=== PATIENT | male | born 1985 | race Caucasian/White ===

== ENCOUNTER 2017-07-28 03:19 | Emergency (ER) | payer OTHER ==
[2017-07-28 03:24] VITALS: BP 148/78
--- NOTE | 2017-07-28 03:47 | ER Document Report ---
ED Skin Rash/Insect Bite/Abscs - General Chief Complaint: Abscess Stated Complaint: PAIN ABOVE KNEE LEFT LEG Time Seen by Provider: 07/28/17 03:44 Notes: The patient is a 32-year-old male who presents with a redness and swelling above his left knee. He said that he hit it against a hard object 2 days ago. Since then he has noticed worsening swelling and redness of his left leg. He denies numbness, tingling, difficulty bending his knee, fevers or any other rashes. TRAVEL OUTSIDE OF THE [place] IN LAST 30 DAYS: No - Related Data Allergies/Adverse Reactions: No Known Allergies Allergy (Verified 07/28/17 03:42) Past Medical History - General Information source: Patient - Social History Smoking Status: Current Every Day Smoker Family History: Reviewed & Not Pertinent Patient has suicidal ideation: No Patient has homicidal ideation: No Renal/ Medical History: Denies: Hx Peritoneal Dialysis Review of Systems - Review of Systems Notes: REVIEW OF SYSTEMS: CONSTITUTIONAL: -fevers, -chills EENT: -eye pain, -difficulty swallowing, -nasal congestion CARDIOVASCULAR:-chest pain, -syncope. RESPIRATORY: -cough, -SOB GASTROINTESTINAL: -abdominal pain, - nausea, -vomiting, -diarrhea GENITOURINARY: -dysuria, -hematuria MUSCULOSKELETAL: -back pain, -neck pain SKIN: +left leg redness HEMATOLOGIC: -easy bruising or bleeding. LYMPHATIC: -swollen, enlarged glands. NEUROLOGICAL: -altered mental status or loss of consciousness, -headache, - neurologic symptoms PSYCHIATRIC: -anxiety, -depression. ALL OTHER SYSTEMS REVIEWED AND NEGATIVE. Physical Exam - Vital signs Vitals: Temp Pulse Resp BP Pulse Ox 97.8 F 42 L 18 148/78 H 98 07/28/17 03:23 07/28/17 03:23 07/28/17 03:23 07/28/17 03:23 07/28/17 03:23 - Notes Notes: PHYSICAL EXAMINATION: GENERAL: Well-appearing, well-nourished and in no acute distress. HEAD: Atraumatic, normocephalic. EYES: Pupils equal round and reactive to light, extraocular movements intact, sclera anicteric, conjunctiva are normal. ENT: nares patent, oropharynx clear without exudates. Moist mucous membranes. NECK: Normal range of motion, supple without lymphadenopathy LUNGS: Breath sounds clear to auscultation bilaterally and equal. No wheezes rales or rhonchi. HEART: Bradycardia (normal for him) ABDOMEN: Soft, nontender, normoactive bowel sounds. No guarding, no rebound. No masses appreciated. EXTREMITIES: Normal range of motion, no pitting or edema. No cyanosis. NEUROLOGICAL: Cranial nerves grossly intact. Normal speech, normal gait. Normal sensory and motor exams. PSYCH: Normal mood, normal affect. SKIN: Erythema above left knee, 2 cm hard non-fluctuant area that is consistent with an early abscess Course - Re-evaluation Re-evalutation: Patient with mild cellulitis over his left upper leg. Bedside ultrasound does not show any discrete abscesses that can be drained at this time. He has full range of motion of his knee and there is no pain so he has no symptoms of septic joint at this time. Will begin doxycycline and give very strict return precautions. He understands. - Vital Signs Vital signs: Temp Pulse Resp BP Pulse Ox 97.8 F 42 L 18 148/78 H 98 07/28/17 03:23 07/28/17 03:23 07/28/17 03:23 07/28/17 03:23 07/28/17 03:23 Discharge - Discharge Clinical Impression: Cellulitis of leg, left Condition: Stable Disposition: HOME, SELF-CARE Additional Instructions: MRSA CELLULITIS: You have an infection of your skin and underlying soft tissues called cellulitis. This is due to bacteria, which can enter through any break in the skin, or even through an irritated hair follicle. Untreated, cellulitis will usually worsen and may form an abscess which requires draining. Although many bacterial organisms can cause cellulitis and abscess formations, the most likely bacteria is Methicillin-Resistant Staph Aureus, or MRSA for short. Antibiotics are required. Usually, warm packs or warm soaks, and elevation of the infected area are recommended. You should start getting better within 24 to 36 hours. Most infections respond quickly to the right medication. Follow-up care is important, however, to check for abscess (boil) formation, unsuspected foreign body, or resistant infection. If you develop fever, chills, or if the area of infection is becoming rapidly more swollen or painful, call the doctor at once. ANTIBIOTIC THERAPY: You have been given an antibiotic prescription. It's important that you take all the medication, unless instructed otherwise by your physician. Failure to complete the entire course can result in relapse of your condition. Common side effects of antibiotics include nausea, intestinal cramping, or diarrhea. Women may develop vaginal yeast infections, and babies can get yeast (thrush) in the mouth following the use of antibiotics. Contact your physician if you develop significant side effects from this medication. Allergy to this antibiotic can result in hives, wheezing, faintness, or itching. If symptoms of allergy occur, stop the medication and call the doctor. DOXYCYCLINE: Doxycycline (Vibramycin, Doryx) is an antibiotic of the tetracycline family. This type of drug is useful for infections of the respiratory tract and genital tract, and is sometimes used for intestinal infections. Unlike most tetracyclines, doxycycline can be taken with food. It is longer acting, and (usually) less prone to side effects than regular tetracycline. Tetracycline antibiotics can stain immature teeth and SHOULD NOT BE TAKEN BY CHILDREN, NURSING MOTHERS, OR WOMEN. Tetracyclines can make you more prone to sunburn. Abdominal cramping, nausea, and diarrhea are occasional side effects. Women may experience vaginal yeast infections. Call the doctor at once if you develop hives, itching, shortness of breath , or lightheadedness. FOLLOW-UP CARE: If you have been referred to a physician for follow-up care, call the physician s office for an appointment as you were instructed or within the next two days. If you experience worsening or a significant change in your symptoms, notify the physician immediately or return to the Emergency Department at any time for re-evaluation. Prescriptions: Doxycycline Hyclate 100 mg PO BID #14 capsule Forms: Elevated Blood Pressure Referrals: SHARA DA SILVA MD [ACTIVE STAFF] - Follow up as needed
[2017-07-28] MEDS ORDERED: DOXYCYCLINE HYCLATE 100 MG TABLET PO ONE (03:52)
== END 2017-07-28 04:05 | disposition home or self-care (01) ==
LOC: ER 03:19
DX: L03.116 Cellulitis of left lower limb (principal); F17.200 Nicotine dependence, unspecified, uncomplicated
CPT/HCPCS: 99283

== ENCOUNTER 2019-04-11 16:58 | Emergency (ER) | payer BC ==
--- NOTE | 2019-04-11 18:28 | RADIOLOGY REPORT (SQ) ---
EXAM DESCRIPTION: FOOT LEFT COMPLETE COMPLETED DATE/TIME: 04/11/2019 5:50 pm REASON FOR STUDY: dropped a window on left foot and 2nd toe COMPARISON: None. NUMBER OF VIEWS: Three views. TECHNIQUE: AP, lateral and oblique radiographic images acquired of the left foot. LIMITATIONS: None. FINDINGS: MINERALIZATION: Normal. BONES: No acute fracture or dislocation. No worrisome bone lesions. JOINTS: No effusions. SOFT TISSUES: No soft tissue swelling. No foreign body. OTHER: No other significant finding. IMPRESSION: NEGATIVE STUDY OF THE LEFT FOOT. NO RADIOGRAPHIC EVIDENCE OF ACUTE INJURY. TECHNICAL DOCUMENTATION: JOB ID: [id number] [employer]- All Rights Reserved Reading location - IP/workstation name: [email or web address]
[2019-04-11 18:41] VITALS: BP 125/82
--- NOTE | 2019-04-11 20:26 | ER Document Report ---
ED General - General Chief Complaint: Foot Injury Stated Complaint: FOOT INJURY Time Seen by Provider: 04/11/19 19:59 Mode of Arrival: Ambulatory Information source: Patient TRAVEL OUTSIDE OF THE [place] IN LAST 30 DAYS: No - HPI Patient complains to provider of: Left foot injury Onset: Other - 5 days ago Onset/Duration: Sudden Quality of pain: Sharp, Throbbing Severity: Moderate Pain Level: 3 Associated symptoms: None Exacerbated by: Movement, Walking, Other - Weightbearing Relieved by: Denies Similar symptoms previously: No Recently seen / treated by doctor: No Notes: 34-year-old male coming in today with left foot injury. He dropped a window on it on Tuesday night. And it progressively got worse since then. Concerned about a possible fracture and may be an infection in the skin. - Related Data Allergies/Adverse Reactions: No Known Allergies Allergy (Verified 04/11/19 17:36) Past Medical History - General Information source: Patient - Social History Smoking Status: Current Every Day Smoker Chew tobacco use (# tins/day): No Frequency of alcohol use: Occasional Drug Abuse: Marijuana Family History: Reviewed & Not Pertinent Patient has suicidal ideation: No Patient has homicidal ideation: No Renal/ Medical History: Denies: Hx Peritoneal Dialysis - Immunizations Hx Diphtheria, Pertussis, Tetanus Vaccination: Yes - 2014 Review of Systems - Review of Systems Notes: Constitutional: No fevers. No chills. EENT: No eye redness. No eye pain. No ear pain. No sore throat. Cardiovascular: No chest pain. No palpitations. Respiratory: No cough. No shortness of breath. No respiratory distress. Gastrointestinal: No abdominal pain. No nausea, vomiting, or diarrhea. Genitourinary: Atraumatic. No lesions. No pain. No discharge. Musculoskeletal: Positive for left foot swelling, bruising, abrasions, cellulitis Skin: No rash or lesions. Lymphatic: No swollen lymph nodes. Neurologic: No headache. No syncope. Psychiatric: No suicidal or homicidal ideation. Physical Exam - Vital signs Vitals: Temp Pulse Resp BP Pulse Ox 97.8 F 75 16 125/82 99 04/11/19 18:39 04/11/19 18:39 04/11/19 18:39 04/11/19 18:39 04/11/19 18:39 - Notes Notes: General: Well-developed, well-nourished. In no acute distress. Non-toxic appearing. Cardiac: Well-perfused. Regular rate and rhythm. No murmurs, rubs, or gallops. Pulmonary: No respiratory distress. No cyanosis. Bilateral lung fiels are clear to auscultation. Abdominal: Non-distended. Non-rigid. Bowels sounds are present in all four quad rants. No guarding or rebound. HEENT: Head is atraumatic. Conjunctivae not reddened. No tearing. PERRL. EOMI. Orbits atraumatic. No periorbital swelling or erythema. Oropharynx is without erythema, swelling, or exudates. Neck: Supple. No adenopathy. No meningismus. Dermatologic: Warm with good turgor. No rash. Atraumatic. Chest: Atraumatic. No chest wall tenderness to palpation. Musculoskeletal: The left lower extremity is evaluated. The left foot is diffusely swollen there is diffuse bruising and ecchymosis. There do appear to be some superficial abrasions on the dorsum of the foot and the distal tib-fib region. These are healing well. There is an area about the size of a dime to the distal dorsal left foot which is warm and erythemic and tender suggestive of cellulitis. Genitourinary: Examination deferred Neurologic: No gross neurologic deficits. Psychiatric: Normal mood. Course - Re-evaluation Re-evalutation: 04/11/19 20:28 X-rays are negative. Patient would like an Leland wrap but will not use crutches. We will start him on Bactrim DS twice daily for 10 days for the developing cellulitis I will give him the name of orthopedics if he needs them. Otherwise he will take all of the antibiotics given until things are better. - Vital Signs Vital signs: Temp Pulse Resp BP Pulse Ox 97.8 F 75 16 125/82 99 04/11/19 18:39 04/11/19 18:39 04/11/19 18:39 04/11/19 18:39 04/11/19 18:39 Discharge - Discharge Clinical Impression: Foot contusion Qualifiers: Encounter type: initial encounter Laterality: left Qualified Code(s): S90.32XA - Contusion of left foot, initial encounter Foot abrasion, infected Qualifiers: Encounter type: initial encounter Laterality: left Qualified Code(s): S90.812A - Abrasion, left foot, initial encounter; L08.9 - Local infection of the skin and subcutaneous tissue, unspecified Disposition: HOME, SELF-CARE Instructions: Contusion ([facility]), Cellulitis ([facility]) Additional Instructions: Keep the foot elevated above the level of your heart to help minimize the swelling. Ice 20 minutes/h is also helpful. Take the antibiotics as directed for the full duration to help treat the infection. You are always welcome to return to the ED to have that infection rechecked. Generally speaking 2 days is a good day to come in for recheck. However if you notice things are improving and do not wish to return it is not mandatory. Wear the Leland wrap for comfort and once the swelling is resolved you do not need to use it anymore. Tylenol and ibuprofen or Aleve for comfort. Prescriptions: Sulfamethoxazole/Trimethoprim [Bactrim Ds Tablet] 1 each PO BID 10 Days #20 tablet Referrals: LIZETH DIAZ MD [ASSOCIATE] - Follow up in 1 week
== END 2019-04-11 20:49 | disposition home or self-care (01) ==
LOC: ER 16:58
DX: S90.32XA Contusion of left foot, initial encounter (principal); S90.812A Abrasion, left foot, initial encounter; M79.89 Other specified soft tissue disorders; M79.672 Pain in left foot; W22.8XXA Striking against or struck by other objects, initial encounter; F17.200 Nicotine dependence, unspecified, uncomplicated
CPT/HCPCS: 99283

== ENCOUNTER 2019-04-15 23:18 | Emergency (ER) | payer BC ==
[2019-04-16] MEDS ORDERED: ACETAMINOPHEN 325 MG TABLET PO ONE (01:08)
[2019-04-16] MEDS ORDERED: MORPHINE SULFATE IR 15 MG TABLET PO ONE (01:08)
[2019-04-16] MEDS ORDERED: IBUPROFEN 600 MG TABLET PO ONE (01:08)
[2019-04-16] MEDS ORDERED: SULFAMETHOXAZOLE/TRIMETHOPRIM 800-160 MG TABLET PO ONE (01:08)
--- NOTE | 2019-04-16 01:13 | ER Document Report ---
ED General - General Chief Complaint: Wound Infection Stated Complaint: LEFT FOOT PAIN Time Seen by Provider: 04/16/19 00:25 Notes: Patient is a 34-year old male without chronic medical problems who presents with increasing pain to a focal area on the left dorsal foot. Patient was seen 5 days ago for left foot swelling and erythema, diagnosed with a left foot cellulitis at that time. The patient states that the foot swelling has decreased dramatically but the small area has become much more raised, and painful. Describes a severe, throbbing, constant pain to the area. Touching the area dramatically worsens the pain. Nothing improves the pain. States that he attempted to poke it with a needle last night but got very minimal amounts of pus from it. Has not had fever or constitutional symptoms. Has not seen his primary care physician regarding today's concerns. TRAVEL OUTSIDE OF THE [place] IN LAST 30 DAYS: No - Related Data Allergies/Adverse Reactions: No Known Allergies Allergy (Verified 04/15/19 23:45) Past Medical History - General Information source: Patient - Social History Smoking Status: Current Every Day Smoker Frequency of alcohol use: Rare Drug Abuse: Marijuana Lives with: Family Family History: Reviewed & Not Pertinent Patient has suicidal ideation: No Patient has homicidal ideation: No Renal/ Medical History: Denies: Hx Peritoneal Dialysis - Immunizations Hx Diphtheria, Pertussis, Tetanus Vaccination: Yes - 2014 Review of Systems - Review of Systems Notes: Constitutional: Negative for fever. HENT: Negative for sore throat. Eyes: Negative for visual changes. Cardiovascular: Negative for chest pain. Respiratory: Negative for shortness of breath. Gastrointestinal: Negative for abdominal pain, vomiting or diarrhea. Genitourinary: Negative for dysuria. Musculoskeletal: Negative for back pain. Skin: Positive for left foot abscess Neurological: Negative for headaches, weakness or numbness. 10 point ROS negative except as marked above and in HPI. Physical Exam - Vital signs Vitals: Temp Pulse Resp BP Pulse Ox 99.1 F 84 20 145/94 H 96 04/15/19 23:22 04/15/19 23:22 04/15/19 23:22 04/15/19 23:22 04/15/19 23:22 Interpretation: Hypertensive Notes: PHYSICAL EXAMINATION: GENERAL: Well-appearing, well-nourished and in no acute distress. HEAD: Atraumatic, normocephalic. EYES: sclera anicteric, conjunctiva are normal. ENT: Moist mucous membranes. NECK: Normal range of motion LUNGS: Normal work of breathing HEART: 2+ DP pulses bilaterally EXTREMITIES: no pitting or edema. No cyanosis. NEUROLOGICAL: No focal neurological deficits. Moves all extremities spontaneously and on command. PSYCH: Normal mood, normal affect. SKIN: Warm, Dry, normal turgor, there is a 1 x 1 cm abscess in the left dorsal midfoot with a surrounding area of erythema roughly 2 x 2 cm in size. Course - Re-evaluation Re-evalutation: 04/16/19 03:54 Patient presents with what appears to be a 1 x 1 cm abscess over the left midfoot with surrounding erythema consistent with cellulitis. Patient is Alberto been on trimethoprim sulfamethoxazole after sustaining a cutaneous injury approximately 9 days ago. He was seen in the emergency department at that time, had an x-ray, and was placed on antibiotic's at that time. Patient reports that the swelling has significantly improved but does continue to have an abscess. This was incised and drained with expression of 4 cc of purulent material. She has had his trimethoprim sulfamethoxazole expanded 2 tabs twice daily for the next 7 days. At this time will discharge with return precautions and follow-up recommendations. Verbal discharge instructions given a the bedside and opportunity for questions given. Medication warnings reviewed. Patient is in agreement with this plan and has verbalized understanding of return precautions and the need for primary care follow-up in the next 24-72 hours. - Vital Signs Vital signs: Temp Pulse Resp BP Pulse Ox 97.9 F 70 19 129/91 H 99 04/16/19 01:40 04/16/19 01:40 04/16/19 01:40 04/16/19 01:40 04/16/19 01:40 Procedures - Incision and Drainage Left Foot Type: Simple Anesthetic type: 1% Lidocaine mL's of anesthetic: 4 Blade size: 11 I&D procedure: Betadine prep applied, Sterile dressing applied Incision Method: Incision made by scalpel Amount/type of drainage: 3 cc purulent drainage Discharge - Discharge Clinical Impression: Foot abscess, left, Cellulitis of left foot Condition: Good Disposition: HOME, SELF-CARE Additional Instructions: You were seen for an abscess that required drainage. Please clean this area with soap and water twice daily and apply a topical antibiotic. Dress the area after each cleaning. Please return if you develop fever, vomiting, the pain at the site worsens, you notice spreading redness from the area, or you have any other symptoms that are concerning to you. For your pain: Take ibuprofen 600 mg and acetaminophen 1000 mg every 6 hours together as needed for pain. Take 2 tabs of Bactrim twice daily for the next 1 week. Prescriptions: Sulfamethoxazole/Trimethoprim [Bactrim Ds Tablet] 2 tab PO BID #28 tablet Forms: Return to Work
[2019-04-16 01:51] VITALS: BP 129/91
== END 2019-04-16 01:40 | disposition home or self-care (01) ==
LOC: ER 23:18
DX: L02.612 Cutaneous abscess of left foot (principal); L03.116 Cellulitis of left lower limb; M79.672 Pain in left foot; F17.200 Nicotine dependence, unspecified, uncomplicated
CPT/HCPCS: 99283